=== PATIENT | female | born 1955 | race Caucasian/White ===

== ENCOUNTER 2022-12-01 06:12 | Day surgery (SDC) | payer BC ==
[2022-11-23 11:44] VITALS: BMI 36.5
[2022-12-01] MEDS ORDERED: CEFAZOLIN 2 GM in DEXTROSE 5%-WATER - 100 ML IVPB ONE (06:30)
[2022-12-01] MEDS ORDERED: VANCOMYCIN 1,000 MG in DEXTROSE 5%-WATER - 250 ML IVPB ONE (06:30)
[2022-12-01] MEDS ORDERED: MIDAZOLAM HCL 2 MG/2 ML SINGLE DOSE VIAL ONE ×4 (07:07→08:57)
[2022-12-01] MEDS ORDERED: BUPIVACAINE HCL/PF 0.5% (5MG/ML) 10 ML VIAL ONE (07:08)
[2022-12-01] MEDS ORDERED: BUPIVACAINE HCL/PF 0.5% (5 MG/ML) 30 ML VIAL IJ ONE (07:10)
[2022-12-01] MEDS ORDERED: BUPIVACAINE LIPOSOME/PF (EXPAREL) 266 MG/20 ML VIAL ONE (07:11)
[2022-12-01] MEDS ORDERED: TRANEXAMIC ACID 1000 MG/10 ML VIAL IVPUSH ONE (07:30)
[2022-12-01] MEDS ORDERED: MAGNESIUM HYDROX 2400MG/30ML ORAL SUSPENSION 30 ML CUP PO PRN (07:34)
[2022-12-01] MEDS ORDERED: MAG HYDROX/AL HYDROX/SIMETH 30 ML UNIT-DOSE CUP PO PRN (07:34)
[2022-12-01] MEDS ORDERED: ONDANSETRON 4 MG/2 ML VIAL IVPUSH PRN ×2 (07:34→10:24)
[2022-12-01] MEDS ORDERED: LACTATED RINGERS SOLUTION 1,000 ML IV SCH ×2 (07:45→10:30)
[2022-12-01] MEDS ORDERED: ceFAZolin SODIUM 1 GM VIAL ONE ×2 (08:13→08:17)
[2022-12-01] MEDS ORDERED: DEXAMETHASONE SOD PHOSPHATE 4 MG/1 ML VIAL ONE (08:17)
[2022-12-01] MEDS ORDERED: KETOROLAC TROMETHAMINE 30 MG/1 ML VIAL ONE ×2 (08:17→09:14)
[2022-12-01] MEDS ORDERED: PATIENT'S OWN MEDICATION (NON-FORMULARY) (Famotidine [Pepcid] 40 MG Tablet) PO SCH (10:00)
[2022-12-01] MEDS ORDERED: LOSARTAN POTASSIUM 50 MG TABLET PO SCH (10:00)
[2022-12-01] MEDS ORDERED: PATIENT'S OWN MEDICATION (NON-FORMULARY) (Hydralazine Hcl [Hydralazine Hcl] 100 MG Tablet) PO SCH (10:00)
[2022-12-01] MEDS ORDERED: oxyCODONE HCL 5 MG TABLET PO PRN ×3 (10:24→10:25)
[2022-12-01] MEDS: ACETAMINOPHEN 1000 MG/100 ML BAG IVPB SCH (10:25)
[2022-12-01] MEDS ORDERED: KETOROLAC TROMETHAMINE 30 MG/1 ML VIAL IVPUSH SCH (10:30)
[2022-12-01] MEDS: LOSARTAN POTASSIUM 50 MG TABLET PO SCH (13:51)
[2022-12-01] MEDS: FAMOTIDINE 20 MG TABLET PO SCH ×2 (13:51→22:45)
[2022-12-01] MEDS: MULTIVITAMINS (DAILY MVI) TABLET (FP) PO SCH (13:51)
[2022-12-01] MEDS: CHOLECALCIFEROL (VIT D3) 400 UNIT (10 MCG) TABLET PO SCH (13:52)
[2022-12-01] MEDS: CYANOCOBALAMIN (VITAMIN B-12) 100 MCG TABLET PO SCH (13:52)
[2022-12-01] MEDS: TOPIRAMATE 25 MG TABLET PO SCH (13:52)
[2022-12-01] MEDS: INSULIN SLIDING SCALE (NOVOLOG) 1 VIAL SQ SCH ×3 (13:53→22:47)
[2022-12-01] MEDS: oxyCODONE HCL 5 MG TABLET PO PRN ×3 (14:26→23:44)
[2022-12-01] MEDS: CEFAZOLIN SODIUM 2 GM in DEXTROSE 5%-WATER 100 ML IVPB SCH (15:10)
[2022-12-01] MEDS: ACETAMINOPHEN 500 MG TABLET (FP) PO SCH (18:04)
[2022-12-01] MEDS: morphine SULFATE 4 MG/ML VIAL IVPUSH PRN (20:56)
[2022-12-01] MEDS ORDERED: oxyCODONE HCL 10 MG SUSTAINED ACTING TABLET PO SCH (22:00)
[2022-12-01] MEDS: SENNOSIDES/DOCUSATE COMBO (SENNA PLUS) TABLET (UD) PO SCH (22:45)
[2022-12-01] MEDS: ASPIRIN 81 MG CHEWABLE TABLETS PO SCH (22:45)
[2022-12-01] MEDS: hydrALAZINE HCL 50 MG TABLET (FP) PO SCH (22:45)
[2022-12-01] MEDS: CELECOXIB 100 MG CAPSULE PO SCH (22:46)
[2022-12-01] MEDS: ROSUVASTATIN CA 10 MG TABLET PO SCH (22:46)
[2022-12-02] MEDS ORDERED: HYDROmorphone HCl 2 MG/ML VIAL IVPUSH ONE (00:15)
[2022-12-02] MEDS: CEFAZOLIN SODIUM 2 GM in DEXTROSE 5%-WATER 100 ML IVPB SCH (00:23)
[2022-12-02] MEDS: ACETAMINOPHEN 500 MG TABLET (FP) PO SCH ×5 (00:24→21:50)
[2022-12-02] MEDS: INSULIN SLIDING SCALE (NOVOLOG) 1 VIAL SQ SCH ×4 (06:24→22:13)
[2022-12-02] MEDS: morphine SULFATE 4 MG/ML VIAL IVPUSH PRN (06:34)
[2022-12-02] MEDS: ACETAMINOPHEN 1000 MG/100 ML BAG IVPB SCH ×4 (06:46→18:43)
[2022-12-02] MEDS ORDERED: ACETAMINOPHEN 120 MG SUPP.RECT RC ONE (07:36)
[2022-12-02] MEDS: oxyCODONE HCL 5 MG TABLET PO PRN ×4 (08:53→21:51)
[2022-12-02] MEDS ORDERED: DEXAMETHASONE 4 MG TABLET (FP) PO ONE (10:00)
[2022-12-02] MEDS: LORATADINE 10 MG TABLET PO SCH (13:45)
[2022-12-02] MEDS: ASPIRIN 81 MG CHEWABLE TABLETS PO SCH ×2 (13:46→21:53)
[2022-12-02] MEDS: hydrALAZINE HCL 50 MG TABLET (FP) PO SCH ×2 (13:46→21:50)
[2022-12-02] MEDS: TOPIRAMATE 25 MG TABLET PO SCH (13:47)
[2022-12-02] MEDS: FAMOTIDINE 20 MG TABLET PO SCH ×2 (13:47→21:54)
[2022-12-02] MEDS: CELECOXIB 100 MG CAPSULE PO SCH ×2 (13:47→21:54)
[2022-12-02] MEDS: MULTIVITAMINS (DAILY MVI) TABLET (FP) PO SCH (13:47)
[2022-12-02] MEDS: SENNOSIDES/DOCUSATE COMBO (SENNA PLUS) TABLET (UD) PO SCH ×2 (13:48→21:52)
[2022-12-02] MEDS: LOSARTAN POTASSIUM 50 MG TABLET PO SCH (13:48)
[2022-12-02] MEDS: CALCIUM (OYSTER SHELL) 500 MG TABLET (FP) PO SCH (18:41)
[2022-12-02] MEDS: CHOLECALCIFEROL (VIT D3) 400 UNIT (10 MCG) TABLET PO SCH (18:41)
[2022-12-02] MEDS: CYANOCOBALAMIN (VITAMIN B-12) 100 MCG TABLET PO SCH (18:41)
[2022-12-02] MEDS: ROSUVASTATIN CA 10 MG TABLET PO SCH (21:53)
[2022-12-03] MEDS: ACETAMINOPHEN 1000 MG/100 ML BAG IVPB SCH ×3 (05:48→18:19)
[2022-12-03] MEDS: ACETAMINOPHEN 500 MG TABLET (FP) PO SCH ×3 (05:50→18:19)
[2022-12-03 09:04] VITALS: RESP 18
[2022-12-03] MEDS: hydrALAZINE HCL 50 MG TABLET (FP) PO SCH (09:42)
[2022-12-03] MEDS: TOPIRAMATE 25 MG TABLET PO SCH ×2 (09:43→09:49)
[2022-12-03] MEDS: SENNOSIDES/DOCUSATE COMBO (SENNA PLUS) TABLET (UD) PO SCH (09:43)
[2022-12-03] MEDS: ASPIRIN 81 MG CHEWABLE TABLETS PO SCH (09:43)
[2022-12-03] MEDS: FAMOTIDINE 20 MG TABLET PO SCH (09:43)
[2022-12-03] MEDS: CELECOXIB 100 MG CAPSULE PO SCH (09:43)
[2022-12-03] MEDS: LOSARTAN POTASSIUM 50 MG TABLET PO SCH (09:45)
[2022-12-03] MEDS: MULTIVITAMINS (DAILY MVI) TABLET (FP) PO SCH (09:45)
[2022-12-03] MEDS: LORATADINE 10 MG TABLET PO SCH (09:48)
[2022-12-03] MEDS ORDERED: DEXAMETHASONE 4 MG TABLET (FP) PO SCH (10:00)
[2022-12-03] MEDS: INSULIN SLIDING SCALE (NOVOLOG) 1 VIAL SQ SCH ×3 (12:13→18:20)
[2022-12-03] MEDS: oxyCODONE HCL 5 MG TABLET PO PRN (12:44)
[2022-12-03 14:36] VITALS: BP 145/69; PULSE 98; TEMP 98.5
[2022-12-03] MEDS: CYANOCOBALAMIN (VITAMIN B-12) 100 MCG TABLET PO SCH (15:07)
[2022-12-03] MEDS: CALCIUM (OYSTER SHELL) 500 MG TABLET (FP) PO SCH (15:07)
[2022-12-03] MEDS: CHOLECALCIFEROL (VIT D3) 400 UNIT (10 MCG) TABLET PO SCH (15:07)
== END 2022-12-03 16:00 | disposition home or self-care (01) ==
LOC: FASUSAT 06:12 → FM/S 11:28 → FASUSAT 12-03 16:00
PROVIDERS: ATTEND Orthopaedic Surgery
PROC: 0SRD0J9 Replacement of Left Knee Joint with Synthetic Substitute, Cemented, Open Approach (ICD-10-PCS; principal; 2022-12-01 08:28)
DX: M17.12 Unilateral primary osteoarthritis, left knee (principal)
CPT/HCPCS: 27447; C1776; 73560-TC-LT-FY; 82962; 94760; 97010-GP; 97116-GP; 97162-GP; C1889